=== PATIENT | female | born 1985 | race Caucasian/White ===

== ENCOUNTER 2016-11-23 09:54 | Emergency (ER) | payer BC ==
[~2016-11-23] VITALS: Ht 165.1 cm; Wt 75.0 kg
[~2016-11-23 09:54] MED LIST: PRENTAB26 PO
[2016-11-23 10:03] VITALS: TEMP 36.4; Ht 165.1 cm; Wt 75.0 kg
[2016-11-23] MEDS ORDERED: CYCLOBENZAPRINE HCL 10 MG TAB PO STA (10:52)
[2016-11-23] MEDS ORDERED: LIDODERM (LIDOCAINE) PATCH 5% TD STA (10:52)
[2016-11-23] MEDS ORDERED: IBUPROFEN 600 MG TAB PO STA (10:52)
[2016-11-23] MEDS ORDERED: OXYCODONE/ACETAMINOPHEN 5-325 TAB PO STA (10:52)
--- NOTE | 2016-11-23 10:52 | EMERGENCY ROOM VISIT NOTE ---
History Report prepared by Silvestre: Gerson Fine Under the Supervision of: Dr. Christiana De La Fuente D.O. First contact with patient: 10:38 Chief Complaint: BACK PAIN Stated Complaint: EXTREME LOWER BACK PAIN, CAN'T WALK History of Present Illness The patient is a 31 year old female who presents to the Emergency Room with complaints of increased lower back pain this morning. The patient has chronic right lower back pain for which she has been seeing a chiropractor for the past several months. The patient has not had any imaging but does have an appointment to see Ortho coming up. The patient sneezed today and had exacerbation of her chronic pain. The patient was brought to her knees by the severity of her pain. The patient has been avoiding heavy lifting and strenuous activity. She did not do anything out of the ordinary today other than the sneeze. She denies numbness in the leg or groin but does have sharp pain radiating down the right leg. The patient feels the pain in her right hip and knee. The patient also notes increased leg weakness today. She has been having trouble walking secondary to pain and weakness. She has not noticed any swelling in the leg. The patient has increased pain when she tries to force bowel movements. She denies any incontinence or changes in her urinary or bowel habits. The patient denies any recent cough or illness, fevers, chills, or vomiting. Source of History: patient Onset: this morning Position: back (lower) Symptom Intensity: severe Timing: other (increased) Associated Symptoms: + weakness, No chills, No cough, No fevers, No numbness , No urinary symptoms, No vomiting Review of Systems See HPI for pertinent positives & negatives. A total of 10 systems reviewed and were otherwise negative. Past Medical & Surgical Medical Problems: (1) Intrauterine (2) Vaginal delivery Family History No pertinent family history Social History Smoking Status: Never Smoker Marital Status: Housing Status: lives with family Current/Historical Medications Scheduled PRN Cyclobenzaprine Hcl (Flexeril), 10 MG PO TID PRN for Muscle Spasms Lidocaine (Lidoderm Patch 5%), 1 UNIT TD DAILY PRN for Pain Oxycodone/Acetaminophen 5MG/325MG (Percocet 5MG/325MG), 1-2 TABS PO Q6H PRN for Pain Allergies Coded Allergies: Sulfa Drugs (Verified Allergy, Unknown, HIVES, 11/23/16) Physical Exam Vital Signs Date Time Temp Pulse Resp B/P Pulse Ox O2 Delivery O2 Flow Rate FiO2 11/23/16 14:00 80 20 96/70 99 Room Air 11/23/16 12:00 92 20 122/70 98 Room Air 11/23/16 10:03 36.4 102 22 109/73 99 Room Air Physical Exam GENERAL: alert, well appearing, well nourished, no distress, non-toxic EYE EXAM: normal conjunctiva, PERRL and EOM's grossly intact OROPHARYNX: no exudate, no erythema, lips, buccal mucosa, and tongue normal and mucous membranes are moist NECK: supple, no nuchal rigidity, no adenopathy, non-tender LUNGS: Clear to auscultation. Normal chest wall mechanics HEART: no murmurs, S1 normal and S2 normal ABDOMEN: abdomen soft, non-tender, normo-active bowel sounds, no masses, no rebound or guarding. BACK: Tenderness to the right paraspinal region and right PCIS, no other bony pain. SKIN: no rashes and no bruising UPPER EXTREMITIES: upper extremities are grossly normal. LOWER EXTREMITIES: No pitting edema. NEURO EXAM: Normal sensorium, cranial nerves II-XII grossly intact, normal speech, no gross weakness of arms, no gross weakness of legs. Gross sensation intact. Patellar reflexes are 2/4 bilaterally, normal sensation bilaterally, negative straight leg raise bilaterally. Medical Decision & Procedures Laboratory Results Test 11/23/16 11:20 Urine Color YELLOW Urine Appearance TURBID (CLEAR) Urine pH 7.5 (4.5-7.5) Urine Specific Decker 1.021 (1.000-1.030) Urine Protein NEG (NEG) Urine Glucose (UA) NEG (NEG) Urine Ketones NEG (NEG) Urine Occult Blood NEG (NEG) Urine Nitrite NEG (NEG) Urine Bilirubin NEG (NEG) Urine Urobilinogen NEG (NEG) Urine Leukocyte Esterase NEG (NEG) Urine WBC (Auto) 1-5 /hpf (0-5) Urine RBC (Auto) 0-4 /hpf (0-4) Urine Hyaline Casts (Auto) 1-5 /lpf (0-5) Urine Epithelial Cells (Auto) >30 /lpf (0-5) Urine Bacteria (Auto) 1+ (NEG) Urine Renal Epithelial Cells /lpf (0-5) Urine Crystals AMORPHOUS SEDIMENT (NONE Urine Mucus PRESENT (NONE PRSENT) Urine Test NEG (NEG) Date/Time Source Procedure Growth Status 11/23/16 11:20 Urine , Clean Catch Urine Culture - Final MORE THAN THREE TYPES OF ORGANISMS VT... Complete Laboratory results per my review. Medications Administered Medications (Trade) Dose Ordered Sig/Shima Route Start Time Stop Time Status Last Admin Dose Admin Cyclobenzaprine HCl (Flexeril Tab) 10 mg NOW STAT PO 11/23/16 10:52 11/23/16 10:57 DC 11/23/16 11:11 10 MG Oxycodone/ Acetaminophen (Percocet 5-325mg Tab) 1 tab NOW STAT PO 11/23/16 10:52 11/23/16 10:57 DC 11/23/16 11:11 1 TAB Ibuprofen (Motrin Tab) 600 mg NOW STAT PO 11/23/16 10:52 11/23/16 10:57 DC 11/23/16 11:11 600 MG Lidocaine (Lidoderm Patch 5%) 1 patch NOW STAT TD 11/23/16 10:52 11/23/16 10:57 DC 11/23/16 11:11 1 PATCH Morphine Sulfate (MoRPHine SULFATE INJ) 4 mg STK-MED ONCE .ROUTE 11/23/16 13:06 11/23/16 13:07 DC 11/23/16 13:08 4 MG Morphine Sulfate (MoRPHine SULFATE INJ) 2 mg STK-MED ONCE .ROUTE 11/23/16 13:06 11/23/16 13:07 DC 11/23/16 13:08 2 MG ED Course 1039: The patient was evaluated in room B2. A complete history and physical exam was performed. 1052: Lidocaine 1 patch TD, Motrin 600 mg PO, Percocet 5/325 mg PO, Flexeril 10 mg PO. 1205: Updated the patient. She still has pain but no longer feels that her legs are weak. 1306: Morphine Sulfate 6 mg IV. 1356: Reassessed the patient. She is feeling better. I discussed the need for close follow up with her, and symptoms to look for warranting return. She is ready for discharge. Medical Decision Differential diagnosis: Etiologies such as musculoskeletal, disc herniation, fracture, aortic disease, metastatic disease, cord compression, discitis, infection, renal colic, gastrointestinal, acute exacerbation of chronic back pain, sciatica, cauda equina, as well as others were entertained. No symptoms or concerning exam for acute cauda equina, did not feel patient required emergent MRI. Doubt acute discitis, epidural abscess or hematoma, urine not suggestive of acute renal stone or pyelonephritis is constipations back pain. Patient with history of chronic back pain acutely exacerbated by sneezing this morning. Discussed maintaining appointment is over the scheduled this coming week with the Back Specialist. Discussed use of medications at home , body mechanics and lifting, limiting activity, symptoms to watch and return for, she verbalized understanding was agreeable with plan. Impression Primary Impression: Low back pain Scribe Attestation The scribe's documentation has been prepared under my direction and personally reviewed by me in its entirety. I confirm that the note above accurately reflects all work, treatment, procedures, and medical decision making performed by me. Departure Information Dispostion Home / Self-Care Prescriptions Lidocaine (Lidoderm Patch 5%) 1 Ea Tdsy 1 UNIT TD DAILY Y for Pain, #1 BOX Prov: Christiana De La Fuente, 11/23/16 Cyclobenzaprine Hcl (FLEXERIL) 10 Mg Tab 10 MG PO TID Y for Muscle Spasms, #21 TAB Prov: Christiana De La Fuente DO 11/23/16 Oxycodone/Acetaminophen 5MG/325MG (PERCOCET 5MG/325MG) Tab 1-2 TABS PO Q6H Y for Pain, #20 TAB Prov: Christiana De La Fuente DO 11/23/16 Referrals No Doctor, Assigned (PCP) Forms HOME CARE DOCUMENTATION FORM, IMPORTANT VISIT INFORMATION Patient Instructions My [facility] Additional Instructions Please keep your appointment this week to see the Back Specialist. If you have any worsening pain, develop numbness or tingling, weakness in the legs, difficulty urinating or having a bowel movement, fevers or chills, vomiting, or have any other new concerns, please return to the emergency room immediately. Please use the pain medications as prescribed. Do not use the pain medication or muscle relaxer and drive. Please monitor for constipation as this is a common side effect of the pain medication. Problem Qualifiers Primary Impression: Low back pain Chronicity: unspecified Back pain laterality: right Sciatica presence: with sciatica Sciatica laterality: sciatica of right side Qualified Codes: M54.41 - Lumbago with sciatica, right side
[2016-11-23 12:03] LABS: URINE APPEARANCE TURBID (CLEAR); URINE BILIRUBIN NEG (NEG); URINE COLOR YELLOW; URINE EPITHELIAL CELL AUTO >30 /lpf (0-5); URINE NITRITE NEG (NEG); URINE PH 7.5 (4.5-7.5); URINE SPECIFIC GRAVITY 1.021 (1.000-1.030); UROBILINOGEN NEG (NEG); ZZUR CULT IF INDIC CLEAN CATCH YES
[2016-11-23 12:26] LABS: MANUAL MICROSCOPIC REQUIRED? NO; REVIEW REQ? YES; SULFASALICYLIC ACID NEG (NEG)
[2016-11-23 12:28] LABS: URINE MUCUS PRESENT (NONE PRSENT)
[2016-11-23] MEDS ORDERED: MoRPHine SULFATE 10 MG/ML CARP/VIAL IM STA (12:32)
[2016-11-23] MEDS ORDERED: MoRPHine SULFATE 2 MG/ML CARP ONE (13:06)
[2016-11-23] MEDS ORDERED: MoRPHine SULFATE 4 MG/ML 1 ML CARP\\VIAL ONE (13:06)
[2016-11-23 14:00] VITALS: BP 96/70; PULSE 80; O2SAT 99
[2016-11-23] MEDS ORDERED: NF656 TD (14:08)
[2016-11-23] MEDS ORDERED: OXYC-57 PO (14:08)
[2016-11-23] MEDS ORDERED: CYCL10TA6 PO (14:08)
[2016-12-31] MEDS ORDERED: OXYC-59 PO (09:00)
[2017-01-09] MEDS ORDERED: HYDR-3763 PO (11:30)
[2017-01-09] MEDS ORDERED: SHAKEOLOGY PO (11:31)
[2017-04-04] MEDS ORDERED: TRAM-10 PO (14:30)
[2017-04-11] MEDS ORDERED: NF656 TOP (06:46)
== END 2016-11-23 14:15 | disposition home or self-care (01) ==
LOC: C.EDB 09:55
DX: M54.41 Lumbago with sciatica, right side (principal); G89.29 Other chronic pain; R26.2 Difficulty in walking, not elsewhere classified; R53.1 Weakness

== ENCOUNTER → 2016-12-23 | Outpatient (CLI) | payer BC ==
[~2016-12-23] MED LIST changes: +HYDR-3763 PO; +NF656 TD; +NF656 TOP; +OXYC-57 PO; +OXYC-59 PO; -PRENTAB26 PO; +SHAKEOLOGY PO; +TRAM-10 PO
--- NOTE | 2016-12-23 12:48 | DIAGNOSTIC IMAGING REPORT ---
MRI OF THE LUMBAR SPINE WITHOUT CONTRAST CLINICAL HISTORY: Low back pain radiating down left leg. COMPARISON STUDY: No previous studies for comparison. TECHNIQUE: Utilizing a 1.5 [place] magnet and dedicated coil, multiplanar, multiecho imaging of the lumbar spine was performed without IV contrast. FINDINGS: For purposes of numbering on this exam, the L5-S1 disc space is assigned to axial image 27 of 30. There is straightening of the normal lumbar lordosis. Vertebral body heights are maintained. There is no intracanalicular mass or fluid collection. Conus terminates at the T12-L1 level. Paravertebral soft tissues are unremarkable. L1-2: The central canal and neural foramen are patent. L2-3: The central canal and neural foramen are patent. L3-4: There is a left foraminal/far left lateral disc protrusion. There is mild narrowing of the left neural foramen. The central canal and neural foramen are patent. L4-5: There is a disc bulge with a superimposed large central disc extrusion that results in marked narrowing of the central canal with moderate narrowing of the lateral recesses. L5-S1: There is a disc bulge with central disc protrusion with mild to moderate narrowing of the central canal and lateral recesses. IMPRESSION: 1. Disc bulge with a large superimposed central disc extrusion at L4-L5 that results in severe central canal and lateral recess narrowing. 2. Disc bulge with moderate-sized central disc protrusion L5-S1 that results in mild to moderate narrowing of the central canal and lateral recesses. 3. Small left foraminal/far left lateral disc protrusion at L3-L4 with mild narrowing of the left neural foramen. Electronically signed by: Aly Valle M.D. 12/23/2016 12:47 PM Dictated Date/Time: 12/23/2016 12:40 PM
== END | disposition home or self-care (01) ==
LOC: C.MRIBC 11:11
PROVIDERS: ATTEND Orthopaedic Surgery Orthopaedic Surgery of the Spine
DX: M51.26 Other intervertebral disc displacement, lumbar region (principal); M51.36 Other intervertebral disc degeneration, lumbar region

== ENCOUNTER → 2016-12-27 | Outpatient (CLI) | payer BC ==
[2016-12-27 13:28] LABS: PREG INTERNAL NEGATIVE QC NEG CLEAR BACKGROUND; PREG INTERNAL POSITIVE QC POS CONTROL LINE
[2016-12-27 13:32] LABS: BASO % 0.3 %; BASO ABS # 0.02 K/uL (0-0.2); COMPLETE YES; EOS % 1.5 %; HEMATOCRIT 38.8 % (37-47); IG% 0.2 %; LYMPH % 35.7 %; LYMPH ABS # 2.33 K/uL (1.2-3.4); MEAN CELL VOLUME 80.7 fL (80-100); MEAN CORPUSCULAR HEMOGLOBIN 26.8 pg (25-34); MEAN CORPUSCULAR HGB CONC 33.2 g/dl (32-36); MONO % 8.1 %; NEUT % 54.2 %; PLATELET COUNT 214 K/uL (130-400); RED BLOOD COUNT 4.81 M/uL (4.2-5.4); WHITE BLOOD COUNT 6.52 K/uL (4.8-10.8)
== END | disposition home or self-care (01) ==
LOC: C.LABBC 09:38
PROVIDERS: ATTEND Physician Assistant
DX: Z01.812 Encounter for preprocedural laboratory examination (principal)

== ENCOUNTER → 2017-01-09 | Day surgery (SDC) | payer BC ==
[2016-12-31 09:00] VITALS: Ht 165.1 cm; Wt 75.0 kg
[~2017-01-09] VITALS: Ht 165.1 cm; Wt 75.0 kg
[~2017-01-09] MED LIST changes: +DEXAMETHASONE SOD INJ 4 MG/ML VIAL ONE; +LIDOCAINE HCL 1% MPF 5 ML VIAL ONE; -NF656 TD; -OXYC-57 PO
--- NOTE | 2017-01-09 08:22 | History & Physical Bridge - SC ---
H&P Re-Evaluation Bridge Note: I have examined the patient, reviewed the History & Physical and in the interval since the performance of the History & Physical I have noted the following changes of clinical significance: No changes noted
--- NOTE | 2017-01-09 08:38 | Discharge Instructions-SurgCtr ---
Discharge Instructions Date of Service Jan 09, 2017. Visit Reason for Visit: Disc Herniation Discharge Discharge Diagnosis / Problem: same Discharge Goals Goal(s): Improve function Activity Recommendations Activity Limitations: resume your previous activity Anesthesia . Post Anesthesia Instructions: If you have had General Anesthesia or IV Sedation: * Do not drive today. * Resume driving when surgeon permits. * Do not make important decisions or sign legal documents today. * Call surgeon for: 1. Temperature elevations greater than 101 degrees F. 2. Uncontrollable pain. 3. Excessive bleeding. 4. Persistent nausea and vomiting. 5. Medication intolerance (nausea, vomiting or rash). * For nausea and vomiting use only clear liquids such as: tea, soda, bouillon until nausea subsides, then gradually increase diet as tolerated. * If you have any concerns or questions, call your surgeon's office. If physician is unavailable and it is an emergency, call 911 or go to the nearest emergency room. . Diet Recommendations Home Diet: no limitations Procedures Procedures Performed: EPIDURAL STEROID INJECTION L4-L5, L5-S1 Pending Studies Studies pending at discharge: no Medical Emergencies . Who to Call and When: Medical Emergencies: If at any time you feel your situation is an emergency, please call 911 immediately. . Non-Emergent Contact Non-Emergency issues call your: Surgeon . . "Provider Documentation" section prepared by Oswald Horvath. .
[2017-01-09 08:39] VITALS: TEMP 36.6
--- NOTE | 2017-01-09 08:39 | [facility] Post Operative Brief Note ---
Immediate Operative Summary Operative Date Jan 09, 2017. Pre-Operative Diagnosis DISC HERNIATION L4-L5, L5-S1 Post-Operative Diagnosis SAME Procedure(s) Performed EPIDURAL STEROID INJECTION L4-L5, L5-S1 Surgeon DR. Edgar BOOTHE Petroleum Engineer Surgeon(s) 0 Estimated Blood Loss 0 Findings disc herniation Specimens 0 Complication(s) None Disposition Recovery Room / PACU
--- NOTE | 2017-01-09 08:49 | OPERATIVE REPORT ---
DATE OF OPERATION: 01/09/2017 PREOPERATIVE DIAGNOSIS: Disc herniation lumbar spine. POSTOPERATIVE DIAGNOSIS: Same. PROCEDURE: Included epidural steroid injection L4-5. SURGEON: Dr. Horvath. PROCEDURE: The patient presented to the minor procedure room, prepped and draped sterile. The 22-gauge Tuohy needle advanced to the epidural space. I used a volume acceptance technique. Dexamethasone 2 mL injected without incident. There were no complications. There was no blood loss. The patient returned to PACU stable. I attest to the content of the Intraoperative Record and any orders documented therein. Any exception s are noted below.
[2017-01-09 08:53] VITALS: BP 116/73; PULSE 81; O2SAT 98
== END | disposition home or self-care (01) ==
LOC: X.SURG 07:21
PROVIDERS: ATTEND Orthopaedic Surgery Orthopaedic Surgery of the Spine
DX: M51.26 Other intervertebral disc displacement, lumbar region (principal); Z79.82 Long term (current) use of aspirin; Z80.0 Family history of malignant neoplasm of digestive organs

== ENCOUNTER → 2017-04-11 | Day surgery (SDC) | payer BC ==
[2017-04-04 14:31] VITALS: Ht 165.1 cm; Wt 75.0 kg
[~2017-04-11] VITALS: Ht 165.1 cm; Wt 75.0 kg
[~2017-04-11] MED LIST changes: -HYDR-3763 PO; -OXYC-59 PO
--- NOTE | 2017-04-11 07:42 | Discharge Instructions-SurgCtr ---
Discharge Instructions Date of Service Apr 11, 2017. Visit Reason for Visit: Disc Herniation Discharge Discharge Diagnosis / Problem: disc herniation Discharge Goals Goal(s): Improve function Activity Recommendations Activity Limitations: as noted below Lifting Limitations: gradually increase as tolerated Exercise/Sports Limitations: until after follow-up appointment May Resume Sexual Activity: after follow-up appointment Shower/Bathe: no limitations Driving or Machine Use: resume 1 day after discharge Anesthesia . Post Anesthesia Instructions: If you have had General Anesthesia or IV Sedation: * Do not drive today. * Resume driving when surgeon permits. * Do not make important decisions or sign legal documents today. * Call surgeon for: 1. Temperature elevations greater than 101 degrees F. 2. Uncontrollable pain. 3. Excessive bleeding. 4. Persistent nausea and vomiting. 5. Medication intolerance (nausea, vomiting or rash). * For nausea and vomiting use only clear liquids such as: tea, soda, bouillon until nausea subsides, then gradually increase diet as tolerated. * If you have any concerns or questions, call your surgeon's office. If physician is unavailable and it is an emergency, call 911 or go to the nearest emergency room. . Diet Recommendations Home Diet: no limitations Procedures Procedures Performed: Epidural Steroid Injection L4-5, L5-S1 Pending Studies Studies pending at discharge: no Medical Emergencies . Who to Call and When: Medical Emergencies: If at any time you feel your situation is an emergency, please call 911 immediately. . Non-Emergent Contact Non-Emergency issues call your: Surgeon . . "Provider Documentation" section prepared by Oswald Horvath. .
--- NOTE | 2017-04-11 07:44 | [facility] Operative Report ---
Operative Report Operative Date Apr 11, 2017. Pre-Operative Diagnosis DISC HERNIATION Post-Operative Diagnosis SAME Procedure(s) Performed Epidural Steroid Injection L4-5, L5-S1 Surgeon DR. BOOTHE Gear Room Keeper Surgeon(s) NONE Estimated Blood Loss 5 Findings pain Complication(s) None Disposition Recovery Room / PACU Indications disc herniation I attest to the content of the Intraoperative Record and any orders documented therein. Any exceptions are noted below.
[2017-04-11 07:58] VITALS: BP 112/68; PULSE 78; TEMP 36.7; O2SAT 100
--- NOTE | 2017-04-11 08:41 | OPERATIVE REPORT ---
DATE OF OPERATION: 04/11/2017 PREOPERATIVE DIAGNOSIS: Disc herniation, lumbar spine. POSTOPERATIVE DIAGNOSIS: Same. PROCEDURE: Include epidural steroid injection L4-L5 and L5-S1, lumbar. BLOOD LOSS: 5 mL SURGEON: Oswald Horvath DO COMPLICATIONS: Zero. DESCRIPTION OF PROCEDURE: The patient was taken to the minor procedure room, placed prone, prepped and draped sterile. I used the 22-gauge Tuohy needle advanced to the epidural area at L5-S1 and L4-L5. One mL of dexamethasone only injected at each of these levels. She tolerated it well. The patient returned to recovery room satisfactory and stable. No complications. I attest to the content of the Intraoperative Record and any orders documented therein. Any exception s are noted below.
== END | disposition home or self-care (01) ==
LOC: X.SURG 06:30
PROVIDERS: ATTEND Orthopaedic Surgery Orthopaedic Surgery of the Spine
DX: M51.27 Other intervertebral disc displacement, lumbosacral region (principal)

== ENCOUNTER → 2017-06-17 | Outpatient (CLI) | payer BC ==
[~2017-06-17] MED LIST changes: -DEXAMETHASONE SOD INJ 4 MG/ML VIAL ONE; -LIDOCAINE HCL 1% MPF 5 ML VIAL ONE
== END | disposition home or self-care (01) ==
LOC: C.PAPS 11:10
PROVIDERS: ATTEND Physician Assistant
DX: Z01.419 Encounter for gynecological examination (general) (routine) without abnormal findings (principal)